=== PATIENT | male | born 1975 | race Asian ===

== ENCOUNTER 2025-04-24 12:31 | Inpatient (IN) | payer OTHER ==
[2025-04-24 12:53] VITALS: BMI 22.8
[2025-04-24] MEDS ORDERED: MAG HYDROX/AL HYDROX/SIMETH 30 ML UNIT-DOSE CUP PO PRN (12:55)
[2025-04-24] MEDS ORDERED: ACETAMINOPHEN 325 MG TABLET (FP) PO PRN (12:55)
[2025-04-24] MEDS ORDERED: IBUPROFEN 400 MG TABLET (FP) PO PRN (12:55)
[2025-04-24] MEDS ORDERED: IBUPROFEN 600 MG TABLET (FP) PO PRN (12:55)
[2025-04-24] MEDS ORDERED: MAGNESIUM HYDROX 2400MG/30ML ORAL SUSPENSION 30 ML CUP PO PRN (12:55)
[2025-04-24] MEDS ORDERED: BISMUTH SUBSALICYLATE 524 MG/30 ML PO PRN (12:55)
[2025-04-24] MEDS ORDERED: BENZONATATE 200 MG CAPSULE PO PRN (12:55)
[2025-04-24] MEDS ORDERED: POLYETHYLENE GLYCOL (HEALTHYLAX) 3350 17 GM PACKET PO PRN (12:55)
[2025-04-24] MEDS ORDERED: ONDANSETRON *ODT* 4 MG TABLET SL PRN (12:55)
[2025-04-24] MEDS ORDERED: NALOXONE (NARCAN) HCL 4 MG/0.1 ML SPRAY NS PRN (12:55)
[2025-04-24] MEDS ORDERED: NICOTINE POLACRILEX 2 MG GUM BUC PRN (12:55)
[2025-04-24] MEDS ORDERED: NICOTINE POLACRILEX 2 MG LOZENGE BC PRN (12:55)
[2025-04-24] MEDS ORDERED: guaiFENesin 600 MG TABLET.ER (FP) PO PRN (12:55)
[2025-04-24] MEDS ORDERED: DICYCLOMINE HCL 10 MG CAPSULE PO PRN (12:55)
[2025-04-24] MEDS ORDERED: LOPERAMIDE HCL 2 MG CAPSULE PO PRN (12:55)
[2025-04-24] MEDS ORDERED: levETIRAcetam 500 MG TABLET (FP) PO ONE (13:15)
[2025-04-24] MEDS ORDERED: NICOTINE 14 MG/24 HOURS TOPICAL PATCH TD ONE (13:16)
[2025-04-24] MEDS: levETIRAcetam 500 MG TABLET (FP) PO SCH (13:17)
[2025-04-24] MEDS: NICOTINE 14 MG/24 HOURS TOPICAL PATCH TD SCH (13:18)
[2025-04-24] MEDS: PANTOPRAZOLE 40 MG TABLET PO SCH (14:21)
[2025-04-24] MEDS: FLU VACC TS2025-26(6MOS UP)/PF 45 MCG/0.5 ML SYRINGE IM ONE (14:21)
[2025-04-24] MEDS: INSULIN ASPART SLIDING SCALE (NOVOLOG) 1 VIAL SQ SCH (17:42)
[2025-04-24] MEDS: MELATONIN 5 MG TABLETS PO SCH (22:14)
[2025-04-24] MEDS: THIAMINE 100 MG TABLET PO SCH (22:15)
[2025-04-25] MEDS: FOLIC ACID 1 MG TABLET (FP) PO SCH (10:14)
[2025-04-25] MEDS: PRENATAL VITAMINS W/ FOLIC ACID TABLET (FP) PO SCH (10:14)
[2025-04-25] MEDS: THIAMINE 100 MG TABLET PO SCH (10:14)
[2025-04-25 13:31] LABS: RDW 18.1 % (12.1-15.9)
[2025-04-25 13:33] LABS: IMMATURE PLATELET FRACTION # 6.50 x10^3/uL; MCHC 34.0 g/dl (32.3-36.5); MEAN CELL VOLUME 88.4 fl (79.0-92.2)
[2025-04-25 13:59] LABS: GLUCOSE,RANDOM 228.0 mg/dL (74-106); TOT PROT 8.1 g/dl (6.4-8.2)
[2025-04-25 14:00] LABS: CO2 23.0 mmol/L (21-32)
[2025-04-25 14:02] LABS: ALK PHOS 110.0 U/L (40-150)
[2025-04-25 14:04] LABS: SGPT/ALT 147.0 U/L (0-55)
[2025-04-25 14:05] LABS: CREATININE 0.52 mg/dL (0.55-1.3); SGOT/AST 187.0 U/L (5-34)
[2025-04-25 15:12] LABS: SYPHILIS W/ RPR CONF REACTIVE (NONREACTIVE)
[2025-04-26 11:05] LABS: RPR REFLEX REACTIVE 1:1 (NONREACTIVE)
[2025-04-26] MEDS: METHOCARBAMOL 500 MG TABLET PO PRN (17:20)
[2025-04-27] MEDS: hydrOXYzine PAMOATE 25 MG CAPSULE (FP) PO PRN (17:34)
[2025-04-27] MEDS: BENZOCAINE/MENTHOL (CHLORASEPTIC ) LOZENGE MM PRN (17:38)
[2025-04-28] MEDS ORDERED: INSULIN ASPART SLIDING SCALE (NOVOLOG) 1 VIAL SQ ONE (07:23)
[2025-04-29] MEDS: DOXYCYCLINE HYCLATE 100 MG TABLET PO SCH (09:17)
[2025-04-29 09:38] VITALS: RESP 16
[2025-04-29] MEDS: diphenhydrAMINE HCL 25 MG CAPSULE (FP) PO PRN (22:28)
[2025-04-30 06:32] VITALS: BP 129/86; PULSE 86; TEMP 96.2
[2025-04-30] MEDS ORDERED: AMMONIUM LACTATE 12% LOTION 225 GM BOTTLE TP PRN (10:51)
[2025-04-30] MEDS ORDERED: metFORMIN HCL 500 MG TABLET (FP) PO SCH (16:30)
== END 2025-04-30 10:58 | disposition home or self-care (01) | DRG 775 ==
LOC: YASAS 12:31 → Y6N 13:23
PROVIDERS: ADMIT Neuromusculoskeletal Medicine & OMM; ATTEND Student in an Organized Health Care Education/Training Program
PROC: HZ2ZZZZ Detoxification Services for Substance Abuse Treatment (ICD-10-PCS; principal; 2025-04-24)
DX: F10.230 Alcohol dependence with withdrawal, uncomplicated (principal); K21.9 Gastro-esophageal reflux disease without esophagitis; I10 Essential (primary) hypertension; E11.9 Type 2 diabetes mellitus without complications; F32.A Depression, unspecified; F17.210 Nicotine dependence, cigarettes, uncomplicated
CPT/HCPCS: 36415; 80053; 80305; 80307; 82962; 83036; 83735; 85027; 86593; 86780; 90656